=== PATIENT | female | born 1985 | race Two or more races ===

== ENCOUNTER 2019-01-19 06:50 | Inpatient (IN) | payer OTHER ==
[~2019-01-19] VITALS: Ht 160 cm; Wt 86.9 kg
[2019-01-19] VITALS (41 sets, daily range): BP systolic 109–164; BP diastolic 55–98
[2019-01-19] MEDS ORDERED: STUACAP PO (07:11)
[2019-01-19 08:31] LABS: HEMATOCRIT 37.6 % (36.0-47.0); HEMOGLOBIN 12.8 g/dl (12.0-15.5); PLATELET COUNT, AUTOMATED 181 10^3/uL (150-450); WHITE BLOOD COUNT 7.6 10^3/uL (4.0-10.0)
[2019-01-19] MEDS ORDERED: LACTATED RINGER'S 1000 ML IV ONE (09:00)
[2019-01-19] MEDS: LR 1,000 ML IV SCH ×2 (09:30→17:42)
[2019-01-19] MEDS ORDERED: OXYTOCIN DRIP 30 UNITS in IV 1 EA IV SCH (10:00)
--- NOTE | 2019-01-19 13:48 | IPN ---
DATE: 01/19/2019 This lady is having induction of labor with the use of a Cook's catheter and Pitocin. We discussed the mechanism of performing the Cook's catheter and the Pitocin in which a sterile speculum examination will be performed identifying the external and internal os. The Cook's catheter will placed within the cervical os up into the uterus and 60 mL of normal saline placed in the uterine bulb and 40 mL in the vaginal vault to keep it in place. We tugged on it and found that there was resistance indicating it was the appropriate place. Pitocin will be started as necessary at 2 milliunits and increased as needed. Presently, we have a category 1 strip. The patient expressed understanding of the above and tolerated procedure well.
--- NOTE | 2019-01-19 13:54 | HPE ---
DATE OF ADMISSION: 01/19/2019 32-year-old 2, para 1, last menstrual period (LMP) 04/07/2018, estimated date of confinement (EDC) 01/12/2019 at 41 and 1 weeks' of gestation for induction of labor. PAST HISTORY: November 2014 at 40 weeks female spontaneous vaginal delivery 7 pounds 7 ounces, 4 hours of pushing 20 hours of labor. LABS: O positive. HIV negative. Hep negative. RPR negative. Rubella immune. Varicella immune. Pap normal. Urine negative. Gonorrhea and chlamydia negative. Her 1 hour glucose was 146. Her 3-hour glucose her fasting was 96, 1 hour was 153, 2 hours 131 and 3 hours 103. On examination she is in no acute distress. Symphysis fundus height is 40, four quadrant bowel sounds are noted. Category 1 strip. The occasional contraction is noted. Cervix is 2 cm soft, posterior, -3 station, 50% effaced. Her blood pressure is 139/78, respirations are 18, pulse is 74 and temperature is 96.3. Urine is not available. The rest the examination is unremarkable. She is normocephalic, atraumatic. Neck full range of motions. Pupils equal and reactive to light. Distal pulses are symmetric. No evidence of deep vein thrombosis (DVT), pulmonary embolism (PE), or superficial phlebitis. Chest is clear bilaterally to bases. No wheezes or rhonchi. No CVA tenderness. Abdomen is soft for quadrant bowel sounds, appropriate symphysis fundus height and vertex presenting. She has no rashes, lesions, tattoos, pruritus. She has no arthralgia, myalgia or joint pain. No complaint cough, wheeze, shortness of breath. She has no infections. No bleeding. Neuro complete. No incontinence, urgency or frequency. No nausea, vomiting, diarrhea or constipation. She did have diabetic issues and an elevated 1-hour GTT, 3-hour was normal. Gyne history is unremarkable. No STDs. Pap smears are up-to-date. MEDICAL HISTORY/SURGICAL HISTORY: Unremarkable. FAMILY HISTORY: Noncontributory. She does not smoke, drink, abuse drugs. She is . There is no domestic violence. We discussed the consent for vaginal delivery, which is the baby through the vagina, with possible assistance of forceps or vacuum, devices as needed for maternal or indications. Forceps or vacuum device can assist with vaginal delivery when normal pushing efforts cannot achieve delivery on their own or when delivery is needed in an emergency for baby's well-being. Medications may be required to induce or augment labor in order to achieve a vaginal delivery. An episiotomy may be required to help baby deliver vaginally. You may also require repair of any lacerations or tears to the vagina or vulva that are created or caused by the delivery. In some cases emergencies can arise requiring emergency section, delivery so quickly there may not be enough time to stop and complete consent forms for section. Understand if this occurs your provider will discuss the section with you before proceeding with surgery and section is delivery through the abdomen with an incision. In some situations may be safer for the mother and the baby than continuing labor only performed when clinically indicated. Risks of vaginal delivery include not limited to bleeding, infection, injury to the vagina, pelvic structures, injury to the baby, damage to the uterus, reactions to anesthesia, remote uterine rupture, remote risk of his risk of hysterectomy for life-threatening bleeding or . Medications used to induce or augment labor may increase your risk for infection, uterine tachysystole, uterine rupture, heart rate abnormalities, need for emergency section, or possible hysterectomy and hemorrhage. Additional risks for use of forceps and vacuum include scratches, hematomas on the head and intracranial bleed, perineal and vaginal lacerations, injury to bowel or bladder. The patient expressed understanding of the issues. 40-minute discussion. All questions were answered. Safe to proceed.
[2019-01-19] MEDS ORDERED: FENTANYL 2MCG/ML ROPIVACAINE 0.2% IN 0.9% NACL 100ML IVBAG As Ordered ONE (16:02)
--- NOTE | 2019-01-19 16:13 | IPN ---
DATE: 01/19/2019 This lady is a 2, para 1 admitted at 41 and one weeks' of gestation for induction of labor. Cooks catheter was placed. She had moderate show. The catheter did not fall out. We removed the Cook's catheter, examined her, found that she was 8 cm, bulging membranes, vertex not well applied, layne every 3-4 minutes, moderate intensity, on Pitocin at six milliunits per minute. The patient's plan is to have an epidural placed, after which we will do an AROM and anticipate the presenting part will come down well applied to the cervix. Safe to proceed.
[2019-01-19] MEDS ORDERED: ePHEDrine SULFATE 25 MG/5 ML(5MG/ML) SYRINGE IV PRN (17:00)
[2019-01-19] MEDS ORDERED: FENTANYL/ROPIVACAINE/NACL BAG 100 ML EPIDURAL SCH (17:00)
[2019-01-19] MEDS ORDERED: EPIDURAL COMMENT XX SCH (17:00)
[2019-01-19] MEDS ORDERED: LACTATED RINGER'S 1000 ML IV PRN (17:00)
[2019-01-19] MEDS ORDERED: ONDANSETRON 4MG/2ML VIAL (J2405) IV PRN (17:00)
[2019-01-19] MEDS ORDERED: EPIDURAL/PCA KEYS XX PRN (17:00)
[2019-01-19] MEDS ORDERED: NALOXONE INJ 0.4 MG/1 ML VIAL (J2310) IV PRN (17:00)
[2019-01-19] MEDS ORDERED: diphenhydrAMINE INJ 50MG/ML VIAL (J1200) IV PRN (17:00)
[2019-01-19] MEDS ORDERED: REFRIGERATOR IV KEYS XX PRN (17:00)
[2019-01-20] VITALS (20 sets, daily range): BP systolic 121–180; BP diastolic 53–86
[2019-01-20 00:29] LABS: CORD GAS ABE A -3.5; CORD GAS ABE V 0.2; CORD GAS HCO3 A 23.2 MEQ/L; CORD GAS HCO3 V 21.9 MEQ/L; CORD GAS O2 SAT A 30.7 %; CORD GAS O2 SAT V 81.4 %; CORD GAS PCO2 A 48.1 mmHg; CORD GAS PCO2 V 28.4 mmHg; CORD GAS PH A 7.302 UNITS; CORD GAS PH V 7.504 UNITS; CORD GAS PO2 A 16.5 mmHg; CORD GAS PO2 V 30.7 mmHg; CORD GAS SBC A 20.1 MEQ/L; CORD GAS SBC V 24.2 MEQ/L; CORD GAS TCO2 A 24.7 MEQ/L; CORD GAS TCO2 V 22.7 MEQ/L
[2019-01-20] MEDS ORDERED: METHYLERGONOVINE MALEATE 0.2 MG/ML VIAL (J2210) IM ONE (00:30)
[2019-01-20] MEDS ORDERED: OXYTOCIN 30 UNITS IN 0.9% NaCl 500ML IV BAG (J2590) As Ordered ONE (00:59)
[2019-01-20] MEDS ORDERED: METHYLERGONOVINE MALEATE 0.2 MG/ML VIAL (J2210) IM PRN (01:15)
[2019-01-20] MEDS ORDERED: RHOGAM 300 MCG (1500 IU) INJ (J2790) IM SCH (01:15)
[2019-01-20] MEDS ORDERED: ACETAMINOPHEN TAB 650MG DOSE (2X325MG) PO PRN (01:15)
[2019-01-20] MEDS ORDERED: ACETAMINOPHEN 500 MG TAB PO PRN (01:15)
[2019-01-20] MEDS ORDERED: OXYTOCIN DRIP 30 UNITS in IV 1 EA IV ONE (01:15)
[2019-01-20] MEDS ORDERED: DOCUSATE SODIUM 100 MG CAP PO PRN (01:15)
[2019-01-20] MEDS ORDERED: DIBUCAINE 1% OINTMENT 30GM TOP PRN (01:15)
[2019-01-20] MEDS ORDERED: MOM 30ML SUSPENSION UDC PO PRN (01:15)
[2019-01-20] MEDS ORDERED: MEASLES,MUMPS,RUBELLA VACCINE INJ (MMR-II) (90707) SC SCH (01:15)
[2019-01-20] MEDS ORDERED: ANUSOL HC CREAM 30GM TOP PRN (01:15)
[2019-01-20] MEDS ORDERED: miSOPROStol 200 MCG TAB (S0191) PR ONE (01:15)
[2019-01-20] MEDS ORDERED: METHYLERGONOVINE MALEATE 0.2 MG TAB PO PRN (01:15)
[2019-01-20] MEDS ORDERED: OXYTOCIN INJ 10 UNITS/ML VIAL (J2590) IM ONE (01:15)
[2019-01-20] MEDS ORDERED: PIPERACILLIN/TAZOBACTAM SOD 3.375 GM in D5W MINI-BAG PLUS 50 ML IV SCH (01:30)
[2019-01-20] MEDS: IBUPROFEN 800 MG TAB PO PRN ×2 (05:09→13:44)
[2019-01-20] MEDS: METHYLERGONOVINE MALEATE 0.2 MG TAB PO SCH ×3 (06:14→18:12)
[2019-01-20 07:33] LABS: HEMATOCRIT 30.2 % (36.0-47.0); MEAN CORPUSCULAR HEMOGLOBIN 32.3 pg (27.0-33.0); MEAN CORPUSCULAR HGB CONC 34.8 g/dl (32.0-36.5); MEAN CORPUSCULAR VOLUME 92.9 fl (80.0-96.0); PLATELET COUNT, AUTOMATED 149 10^3/uL (150-450); RED BLOOD COUNT 3.25 10^6/uL (4.00-5.40); WHITE BLOOD COUNT 19.9 10^3/uL (4.0-10.0)
[2019-01-20 07:41] LABS: HEMOGLOBIN 10.5 g/dl (12.0-15.5)
--- NOTE | 2019-01-20 08:35 | IPN ---
DATE: 01/19/2019 This lady was admitted at 41 and 1 weeks of gestation for induction of labor. She had a Hill bulb placed and with some Pitocin going she eventually had an epidural and had a spontaneous rupture of membranes. On removal of the Hill bulb, she was 8 cm, -3 station, not well applied. Presently, she is fully dilated at 2111 hours. The head is well applied to the cervix. There is a bit of molding. She is -2 station in the occiput transverse (OT) position. Contractions are 3-5 minutes apart, moderate intensity. She feels no pressure and no pain. Category one strip. Plan of management is to allow her to labor down until she is feeling pelvic pressure in order to establish pushing. Previously with her past baby, she pushed for 4 hours. Our anticipation is to have passive descent prior to pushing.
[2019-01-20] MEDS ORDERED: SLF 3 ML SYR IV PRN (09:00)
[2019-01-20] MEDS: PRENATAL VITAMINS CHEWABLE TABLET PO SCH (09:59)
[2019-01-20] MEDS: SLF 3 ML SYR IV SCH ×2 (14:00→22:00)
--- NOTE | 2019-01-20 16:17 | DN ---
DATE: 01/19/2019 This lady is a 2, para 1, admitted for induction of labor at 41 and 1 weeks of gestation. She had a Hill bulb and Pitocin, eventually it fell out. She was 8 cm, had an epidural in place, had spontaneous rupture of membranes, 9 cm. Progressed slowly but well up to full dilatation, well applied in the occiput anterior (OA) position. She did have a spontaneous vaginal delivery, a live male infant, 9 pounds, 4070 grams, scores of 7 and 9 at one and five minutes respectively. Arterial pH 7.30, base excess -5.3, venous pH 7.50, base excess 0.2. Cord around the neck times one, loose. She had a moderate amount of polyhydramnios after the baby, and the baby had some terminal meconium at delivery. The placenta remained intact and took 25-27 minutes for removal. She had a considerably atonic uterus. Approximate blood loss of 1200 mL. We did a manual exploration, after a spontaneous effort by the patient to expel the placenta, had a small little piece which was sent off with the rest of the placenta to pathology. During her atonic phase, she had Methergine 0.2 intramuscularly (IM), she had Pitocin 5 units IM, bag running at 199 per hour of 30 units and Cytotec 1000 mg per rectum. With vigorous massage, she eventually contracted well down, although we did have consent for UA in the operating theatre, but after 30 minutes, there was well-controlled bleeding at the site. She had a small blood vessel in the fourchette, oversewn in the usual fashion with #2-0 Vicryl. The patient and baby tolerated procedure well, and she will be monitored over the next 24 hours with Methergine series, CBC at 0600 hours. Edited 01/20/2019 [facility]
[2019-01-21] MEDS: METHYLERGONOVINE MALEATE 0.2 MG TAB PO SCH (00:19)
[2019-01-21] MEDS ORDERED: METHYLERGONOVINE MALEATE 0.2 MG TAB PO PRN (04:30)
[2019-01-21] MEDS: IBUPROFEN 600 MG TAB PO PRN ×2 (05:11→21:09)
[2019-01-21 05:44] VITALS: BP 120/74
[2019-01-21] MEDS: SLF 3 ML SYR IV SCH ×3 (06:00→20:05)
[2019-01-21 06:37] LABS: HEMATOCRIT 30.1 % (36.0-47.0); HEMOGLOBIN 9.9 g/dl (12.0-15.5); MEAN CORPUSCULAR HEMOGLOBIN 31.7 pg (27.0-33.0); MEAN CORPUSCULAR HGB CONC 32.9 g/dl (32.0-36.5); MEAN CORPUSCULAR VOLUME 96.5 fl (80.0-96.0); PLATELET COUNT, AUTOMATED 168 10^3/uL (150-450); RED BLOOD COUNT 3.12 10^6/uL (4.00-5.40); WHITE BLOOD COUNT 15.7 10^3/uL (4.0-10.0)
--- NOTE | 2019-01-21 07:01 | IPNPDOC ---
Progress Note Date of Service: Jan 21, 2019 Day#: 1 Progress Note SUBJECT: patient is a 33 yo s/p ppd #1. delivery complicated by hemorrhage. Today without concerns. denies dizziness with activities. She has been ambulating, voiding spontaneously without issue and tolerating regular diet. Breast feeding without issue. Reports lochia is like a normal period. patient plans for mirena IUD for contraceptive. OBJECTIVE: VITAL SIGNS: Within normal limits, afebrile. Alert and oriented times three. Abdomen: Fundus firm at U-1. Soft, NTTP. A/P ppd #1, doing well. hct 30 with AM lab. due to pph will watch patient for 48hrs. plan for discharge on ppd #2. VS, I&O, 24H, Fishbone Vital Signs/I&O Vital Signs Date Time Temp Pulse Resp B/P (MAP) Pulse Ox O2 Delivery O2 Flow Rate FiO2 01/21/19 05:44 97.4 87 17 120/74 (89) 01/20/19 04:55 96 Room Air I&O- Last 24 Hours up to 6 AM 01/21/19 06:00 Output Total 600 ml Balance -600 ml Laboratory Data 24H LABS Laboratory Tests 2 01/21/19 06:25: Nucleated Red Blood Cells % (auto) 0.0 CBC/BMP Laboratory Tests 01/21/19 06:25 FIDEL DE OLIVEIRA DO Jan 21, 2019 07:01
[2019-01-21] MEDS: PRENATAL VITAMINS CHEWABLE TABLET PO SCH (09:27)
[2019-01-21 09:30] VITALS: BP 123/67
[2019-01-21 17:59] VITALS: BP 125/65
[2019-01-22] MEDS: SLF 3 ML SYR IV SCH (01:20)
[2019-01-22 06:00] VITALS: BP 118/70
[2019-01-22] MEDS ORDERED: DIBU10OI TOP (06:14)
[2019-01-22] MEDS ORDERED: ACET-683 PO (06:14)
[2019-01-22] MEDS ORDERED: DOCU100C16 PO (06:14)
[2019-01-22] MEDS ORDERED: PROC1CRE5 TOP (06:14)
[2019-01-22] MEDS ORDERED: IBUP80TA PO (06:14)
[2019-01-22] MEDS: IBUPROFEN 600 MG TAB PO PRN (06:34)
[2019-01-22] MEDS: PRENATAL VITAMINS CHEWABLE TABLET PO SCH (08:43)
--- NOTE | 2019-01-23 11:10 | IPN ---
DATE: 01/20/2019 This patient and requested circumcision of their male . After discussing risks and benefits of circumcision, medical and nonmedical indications, the penile block and aftercare, they expressed understanding of penile block aftercare and bleeding, signed the consent form. All questions were answered. 20-minute discussion. We await the clearance by the gatehouse attendant.
--- NOTE | 2019-01-23 11:23 | DSES ---
DATE OF ADMISSION: 01/19/2019 DATE OF DISCHARGE: 01/22/2019 This lady is a 33-year-old 2, now para 2, admitted for induction of labor at 41 and 1 weeks of gestation, delivered a livebirth male with epidural in place, 9 pounds 0 ounces, 4070 grams, scores of 7 and 9 at 1 and 5 minutes, respectfully. Arterial pH 7.30, base excess -3.5, venous pH 7.50, base excess 0.2. She had a small first-degree tear, oversewn in the usual fashion. She did have a hemorrhage with 1200 bright red bleeding, retained membranes, and manual removal, and she also had polyhydramnios. She was given Cytotec, Methergine in continuous series, as well as Pitocin. On her second day, we discussed phlebitis, cystitis, mastitis, endometritis, cellulitis, diet, exercise, pain management, perineal, breast, and wound care. Her vital signs on discharge: Blood pressure 125/65, respirations 18, pulse 87, temperature is 98.4. Her initial hemoglobin was 12.8, hematocrit 37.6, and platelets were 181. Discharge hemoglobin was 9.9, hematocrit 30.1, and platelets were 168. The rest of the examination unremarkable. Normocephalic, atraumatic. Neck: Full range of motion. Pupils equal and reactive to light. Distal pulses symmetric. No evidence of deep venous thrombosis (DVT), pulmonary embolism (PE), or superficial phlebitis. Chest is clear bilaterally to bases. No wheezes or rhonchi. No costovertebral angle (CVA) tenderness. Abdomen: Soft. Uterus two below. Lochia is moderate. Four quadrant bowel sounds are active. Perineum is healing. She has no complaint of cough, wheeze, shortness of breath or dyspnea on exertion. No nausea, vomiting, diarrhea, or constipation. In summary, we have a term gestation, delivered a livebirth male infant. Discharged. Followup in 6 weeks in the office and has been dispensed her medication. Will have an intrauterine contraceptive device (IUCD) at her 6-week checkup.
== END 2019-01-22 13:40 | disposition home or self-care (01) | DRG 806 ==
LOC: M LDI 06:50 → M OBS 01-20 04:55
PROVIDERS: ADMIT Obstetrics & Gynecology; ATTEND Obstetrics & Gynecology
PROC: 10E0XZZ Delivery of Products of Conception, External Approach (ICD-10-PCS; principal; 2019-01-19)
PROC: 3E033VJ Introduction of Other Hormone into Peripheral Vein, Percutaneous Approach (ICD-10-PCS; 2019-01-19)
PROC: 0HQ9XZZ Repair Perineum Skin, External Approach (ICD-10-PCS; 2019-01-19)
DX: O48.0 Post-term pregnancy (principal); Z37.0 Single live birth; O72.1 Other immediate postpartum hemorrhage; Z3A.41 41 weeks gestation of pregnancy; O69.81X0 Labor and delivery complicated by cord around neck, without compression, not applicable or unspecified; O40.3XX0 Polyhydramnios, third trimester, not applicable or unspecified; O77.0 Labor and delivery complicated by meconium in amniotic fluid; O70.0 First degree perineal laceration during delivery